=== PATIENT | male | born 1975 | race Caucasian/White ===

== ENCOUNTER 2020-03-27 01:34 | Inpatient (IN) | payer MEDICAID ==
[~2020-03-27] VITALS: Ht 165.1 cm; Wt 97.3 kg
[2020-03-27 02:47] LABS: BASOPHIL % 0.2 % (0-2); PLATELET COUNT 349 x10^3mcL (130-400); RED CELL DISTRIBUTION WIDTH 13.9 % (11.5-14.5)
[2020-03-27 02:48] LABS: BILIRUBIN TOTAL 0.65 mg/dL (0.20-1.00); CALCIUM 7.4 mg/dL (8.5-10.1); CARBON DIOXIDE 14.1 mmol/L (21-32); TOTAL PROTEIN, SERUM 7.9 g/dL (6.4-8.2)
[2020-03-27 02:52] LABS: ALBUMIN 3.3 g/dL (3.4-5.0)
[2020-03-27 02:54] LABS: CREATININE SERUM 4.8 mg/dL (0.7-1.3); POTASSIUM SERUM 6.9 mmol/L (3.5-5.1)
[2020-03-27 02:55] LABS: AMPHETAMINE QUAL UR POSITIVE (See below)
[2020-03-27 07:34] LABS: CHOLESTEROL/HDL RATIO 2.3
[2020-03-27 08:00] LABS: CALCIUM 7.5 mg/dL (8.5-10.1); CARBON DIOXIDE 17.2 mmol/L (21-32)
[2020-03-27 09:16] LABS: POTASSIUM SERUM 6.5 mmol/L (3.5-5.1)
[2020-03-27 09:17] LABS: CREATININE SERUM 4.9 mg/dL (0.7-1.3)
[2020-03-27 13:45] VITALS: BP 125/78
[2020-03-27 16:55] VITALS: BP 130/97
[2020-03-27 18:58] VITALS: BP 131/84
[2020-03-27 20:53] VITALS: BP 132/84
[2020-03-28 05:18] VITALS: BP 149/94
[2020-03-28 08:02] VITALS: BP 134/87
[2020-03-28 09:30] LABS: MAGNESIUM 2.6 mg/dL (1.8-2.4); PHOSPHOROUS 6.1 mg/dL (2.5-4.9)
[2020-03-28 09:36] LABS: BILIRUBIN TOTAL 0.99 mg/dL (0.20-1.00); CARBON DIOXIDE 26.8 mmol/L (21-32); POTASSIUM SERUM 5.2 mmol/L (3.5-5.1)
[2020-03-28 11:04] LABS: TOTAL PROTEIN, SERUM 5.9 g/dL (6.4-8.2)
[2020-03-28 11:05] LABS: CREATININE SERUM 7.5 mg/dL (0.7-1.3)
[2020-03-28 12:25] VITALS: BP 135/84
[2020-03-28 15:42] LABS: BASOPHIL % 0.1 % (0-2); PLATELET COUNT 238 x10^3mcL (130-400); RED CELL DISTRIBUTION WIDTH 14.1 % (11.5-14.5)
[2020-03-28 16:22] VITALS: BP 135/80
[2020-03-28 20:48] VITALS: BP 128/86
[2020-03-29 04:34] LABS: CALCIUM 6.8 mg/dL (8.5-10.1); CARBON DIOXIDE 26.1 mmol/L (21-32); MAGNESIUM 2.3 mg/dL (1.8-2.4); PHOSPHOROUS 7.1 mg/dL (2.5-4.9); POTASSIUM SERUM 4.5 mmol/L (3.5-5.1)
[2020-03-29 04:37] LABS: CREATININE SERUM 7.6 mg/dL (0.7-1.3)
[2020-03-29 04:41] LABS: PLATELET COUNT 188 x10^3mcL (130-400); RED CELL DISTRIBUTION WIDTH 14.2 % (11.5-14.5)
[2020-03-29 04:54] LABS: BASOPHIL % 0 % (0-2)
[2020-03-29 06:02] VITALS: BP 147/82
[2020-03-29 08:06] VITALS: BP 125/87
[2020-03-29 11:22] VITALS: BP 145/80
[2020-03-29 16:20] VITALS: BP 139/88
[2020-03-29 21:55] VITALS: BP 142/82
[2020-03-30 00:02] LABS: microscopic required? YES; urine erythrocyte 3+ (NEGATIVE)
[2020-03-30 05:03] LABS: PLATELET COUNT 143 x10^3mcL (130-400); RED CELL DISTRIBUTION WIDTH 13.7 % (11.5-14.5)
[2020-03-30 05:09] LABS: BASOPHIL % 0 % (0-2)
[2020-03-30 05:22] LABS: CARBON DIOXIDE 28.3 mmol/L (21-32); MAGNESIUM 2.6 mg/dL (1.8-2.4); POTASSIUM SERUM 5.2 mmol/L (3.5-5.1)
[2020-03-30 05:30] LABS: CALCIUM 5.9 mg/dL (8.5-10.1); CREATININE SERUM 9.6 mg/dL (0.7-1.3)
[2020-03-30 05:31] LABS: PHOSPHOROUS 10.9 mg/dL (2.5-4.9)
[2020-03-30 06:05] VITALS: BP 144/77
[2020-03-30 08:34] VITALS: BP 109/65
[2020-03-30 11:11] LABS: BILIRUBIN TOTAL 0.8 mg/dL (0.20-1.00); CARBON DIOXIDE 26.2 mmol/L (21-32); POTASSIUM SERUM 4.5 mmol/L (3.5-5.1)
[2020-03-30 11:12] LABS: ALBUMIN 1.8 g/dL (3.4-5.0); TOTAL PROTEIN, SERUM 5.2 g/dL (6.4-8.2)
[2020-03-30 11:15] LABS: CALCIUM 5.4 mg/dL (8.5-10.1); CREATININE SERUM 9.8 mg/dL (0.7-1.3)
[2020-03-30 13:55] VITALS: BP 114/71
[2020-03-30 17:08] VITALS: BP 110/70
[2020-03-30 19:25] LABS: CARBON DIOXIDE 25.6 mmol/L (21-32); POTASSIUM SERUM 4.9 mmol/L (3.5-5.1)
[2020-03-30 19:29] LABS: CALCIUM 5.2 mg/dL (8.5-10.1); CREATININE SERUM 10.7 mg/dL (0.7-1.3)
[2020-03-30 22:26] VITALS: BP 132/79
[2020-03-31 06:15] VITALS: BP 113/71
[2020-03-31 07:37] LABS: PLATELET COUNT 141 x10^3mcL (130-400); RED CELL DISTRIBUTION WIDTH 12.8 % (11.5-14.5)
[2020-03-31 08:21] LABS: CARBON DIOXIDE 24.9 mmol/L (21-32); MAGNESIUM 2.8 mg/dL (1.8-2.4); POTASSIUM SERUM 4.7 mmol/L (3.5-5.1)
[2020-03-31 08:37] VITALS: BP 126/71
[2020-03-31 08:40] LABS: CALCIUM 5.2 mg/dL (8.5-10.1)
[2020-03-31 08:41] LABS: CREATININE SERUM 11.1 mg/dL (0.7-1.3); PHOSPHOROUS 13.7 mg/dL (2.5-4.9)
[2020-03-31 13:08] VITALS: BP 121/79
[2020-03-31 13:54] LABS: BAND NEUTROPHIL 2 % (0-10); MONOCYTE 8 % (0-7); SEGMENTED NEUTROPHILS 73 % (37-75); rbc morphology (normal/abnorm) NORMAL (NORMAL)
[2020-03-31 15:09] LABS: PLATELET COUNT 136 x10^3mcL (152-348); RED CELL DISTRIBUTION WIDTH 13.6 % (12.1-16.2)
[2020-03-31 16:07] LABS: BAND NEUTROPHIL 5 % (0-10); METAMYELOCTE 4 % (0-2); MONOCYTE 1 % (0-7); SEGMENTED NEUTROPHILS 78 % (37-75)
[2020-03-31 16:08] LABS: PLATELET MORPHOLOGY PLATELETS NORMAL; rbc morphology (normal/abnorm) NORMAL (NORMAL)
[2020-03-31 17:38] VITALS: BP 141/75
[2020-03-31 21:11] VITALS: BP 157/70
[2020-04-01 05:51] VITALS: BP 137/70
[2020-04-01 07:25] LABS: CARBON DIOXIDE 23.5 mmol/L (21-32); MAGNESIUM 2.6 mg/dL (1.8-2.4); POTASSIUM SERUM 4.5 mmol/L (3.5-5.1)
[2020-04-01 07:40] LABS: CALCIUM 5.6 mg/dL (8.5-10.1)
[2020-04-01 09:16] VITALS: BP 154/78
[2020-04-01 09:35] LABS: PHOSPHOROUS 12.9 mg/dL (2.5-4.9)
[2020-04-01 12:00] VITALS: BP 128/78
[2020-04-01 14:07] LABS: BASOPHIL % 0.9 % (0.2-1.5); PLATELET COUNT 147 x10^3mcL (152-348)
[2020-04-01 17:46] VITALS: BP 161/81
[2020-04-01 19:56] VITALS: BP 167/87
[2020-04-02 05:50] VITALS: BP 162/80
[2020-04-02 06:59] LABS: PLATELET COUNT 174 x10^3mcL (152-348); RED CELL DISTRIBUTION WIDTH 13.8 % (12.1-16.2)
[2020-04-02 07:33] LABS: BILIRUBIN TOTAL 0.79 mg/dL (0.20-1.00); CALCIUM 6.5 mg/dL (8.5-10.1); CARBON DIOXIDE 22.2 mmol/L (21-32); POTASSIUM SERUM 4.4 mmol/L (3.5-5.1)
[2020-04-02 07:36] LABS: ALBUMIN 1.8 g/dL (3.4-5.0); CREATININE SERUM 8.9 mg/dL (0.7-1.3); TOTAL PROTEIN, SERUM 5.6 g/dL (6.4-8.2)
[2020-04-02 07:52] VITALS: BP 113/75
[2020-04-02 08:01] LABS: MONOCYTE 7.5 % (0-7)
[2020-04-02 11:29] VITALS: BP 150/81
[2020-04-02 15:00] LABS: rbc morphology (normal/abnorm) NORMAL (NORMAL)
[2020-04-02 16:12] VITALS: BP 145/78
[2020-04-02 20:48] VITALS: BP 124/70; BP 161/74
[2020-04-03 05:37] VITALS: BP 139/76
[2020-04-03 07:37] VITALS: BP 146/80
[2020-04-03 07:51] LABS: PLATELET COUNT 210 x10^3mcL (152-348); RED CELL DISTRIBUTION WIDTH 13.7 % (12.1-16.2)
[2020-04-03 12:20] VITALS: BP 166/71
[2020-04-03 14:02] LABS: BAND NEUTROPHIL 6 % (0-10); METAMYELOCTE 2 % (0-2); MONOCYTE 7 % (0-7)
[2020-04-03 14:03] LABS: MYELOCYTE 1 % (0-2)
[2020-04-03 14:04] LABS: SEGMENTED NEUTROPHILS 70 % (37-75); rbc morphology (normal/abnorm) NORMAL (NORMAL)
[2020-04-03 14:05] LABS: PLATELET MORPHOLOGY PLATELETS NORMAL
[2020-04-03 14:30] LABS: POTASSIUM SERUM 4.7 mmol/L (3.5-5.1)
[2020-04-03 14:31] LABS: CARBON DIOXIDE 20.4 mmol/L (21-32)
[2020-04-03 14:32] LABS: ALBUMIN 1.9 g/dL (3.4-5.0); CALCIUM 6.5 mg/dL (8.5-10.1); TOTAL PROTEIN, SERUM 5.6 g/dL (6.4-8.2)
[2020-04-03 14:33] LABS: BILIRUBIN TOTAL 0.68 mg/dL (0.20-1.00)
[2020-04-03 14:34] LABS: MAGNESIUM 2.9 mg/dL (1.8-2.4)
[2020-04-03 14:37] LABS: CREATININE SERUM 10.3 mg/dL (0.7-1.3)
[2020-04-03 14:38] LABS: PHOSPHOROUS 11.8 mg/dL (2.5-4.9)
[2020-04-03 16:45] VITALS: BP 158/79
[2020-04-03 21:21] VITALS: BP 141/71
[2020-04-04 02:59] VITALS: BP 127/69
[2020-04-04 06:10] VITALS: BP 154/75
[2020-04-04 08:05] VITALS: BP 130/69
[2020-04-04 09:10] LABS: CALCIUM 6.7 mg/dL (8.5-10.1); CARBON DIOXIDE 23.6 mmol/L (21-32); MAGNESIUM 2.3 mg/dL (1.8-2.4); PHOSPHOROUS 8.5 mg/dL (2.5-4.9); POTASSIUM SERUM 4.2 mmol/L (3.5-5.1)
[2020-04-04 09:19] LABS: PLATELET COUNT 213 x10^3mcL (152-348); RED CELL DISTRIBUTION WIDTH 13.6 % (12.1-16.2)
[2020-04-04 12:11] VITALS: BP 125/74
[2020-04-04 14:36] LABS: SEGMENTED NEUTROPHILS 82.6 % (37-75)
[2020-04-04 14:37] LABS: BASOPHIL 1.1 % (0-2); MONOCYTE 5.4 % (0-7); rbc morphology (normal/abnorm) NORMAL (NORMAL)
[2020-04-04 16:50] VITALS: BP 125/73
[2020-04-04 17:00] VITALS: Ht 165.1 cm; Wt 97.3 kg
[2020-04-04 22:09] VITALS: BP 165/84
[2020-04-05 06:41] VITALS: BP 117/72
[2020-04-05 08:00] VITALS: BP 126/75
[2020-04-05 08:09] LABS: BASOPHIL % 0.4 % (0.2-1.5); PLATELET COUNT 259 x10^3mcL (152-348); RED CELL DISTRIBUTION WIDTH 13.6 % (12.1-16.2)
[2020-04-05 08:56] LABS: microscopic required? YES; urine erythrocyte 2+ (NEGATIVE)
[2020-04-05 09:25] LABS: CARBON DIOXIDE 23.7 mmol/L (21-32); MAGNESIUM 2.6 mg/dL (1.8-2.4); POTASSIUM SERUM 4.2 mmol/L (3.5-5.1)
[2020-04-05 09:29] LABS: CREATININE SERUM 9.4 mg/dL (0.7-1.3)
[2020-04-05 12:22] VITALS: BP 133/70
[2020-04-05 15:19] LABS: PHOSPHOROUS 10.1 mg/dL (2.5-4.9)
[2020-04-05 17:01] VITALS: BP 117/74
[2020-04-05 20:36] VITALS: BP 131/71
[2020-04-06 05:39] VITALS: BP 138/72
[2020-04-06 07:23] LABS: BASOPHIL % 0.2 % (0.2-1.5); RED CELL DISTRIBUTION WIDTH 14.1 % (12.1-16.2)
[2020-04-06 07:26] LABS: PLATELET COUNT 307 x10^3mcL (152-348)
[2020-04-06 07:29] LABS: CALCIUM 7.3 mg/dL (8.5-10.1); CARBON DIOXIDE 25.6 mmol/L (21-32)
[2020-04-06 07:36] LABS: CREATININE SERUM 7.6 mg/dL (0.7-1.3)
[2020-04-06 08:07] VITALS: BP 141/81
[2020-04-06 13:04] VITALS: BP 150/76
[2020-04-06 16:52] VITALS: BP 144/76
[2020-04-06 20:48] VITALS: BP 138/77
[2020-04-07 05:19] VITALS: BP 133/74
[2020-04-07 08:51] VITALS: BP 134/79
[2020-04-07 09:12] LABS: PLATELET COUNT 347 x10^3mcL (152-348); RED CELL DISTRIBUTION WIDTH 14.2 % (12.1-16.2)
[2020-04-07 09:53] LABS: CALCIUM 7.8 mg/dL (8.5-10.1); CARBON DIOXIDE 23.4 mmol/L (21-32); POTASSIUM SERUM 4.5 mmol/L (3.5-5.1)
[2020-04-07 09:58] LABS: CREATININE SERUM 8.8 mg/dL (0.7-1.3)
[2020-04-07 11:38] LABS: BAND NEUTROPHIL 0 % (0-10); MONOCYTE 8 % (0-7); PLATELET MORPHOLOGY PLATELETS NORMAL; SEGMENTED NEUTROPHILS 81 % (37-75)
[2020-04-07 11:39] LABS: rbc morphology (normal/abnorm) NORMAL (NORMAL)
[2020-04-07 11:54] VITALS: BP 152/86
[2020-04-07 17:08] VITALS: BP 142/84
[2020-04-07 21:40] VITALS: BP 135/70
[2020-04-08 06:13] VITALS: BP 139/80
[2020-04-08 08:02] LABS: BASOPHIL % 0.5 % (0.2-1.5); PLATELET COUNT 374 x10^3mcL (152-348); RED CELL DISTRIBUTION WIDTH 13.8 % (12.1-16.2)
[2020-04-08 08:23] LABS: CALCIUM 8.3 mg/dL (8.5-10.1); CARBON DIOXIDE 26.5 mmol/L (21-32); POTASSIUM SERUM 3.9 mmol/L (3.5-5.1)
[2020-04-08 08:25] LABS: CREATININE SERUM 6.9 mg/dL (0.7-1.3)
[2020-04-08 09:04] VITALS: BP 144/81
[2020-04-08 12:05] VITALS: BP 157/87
[2020-04-08 16:35] VITALS: BP 149/86
[2020-04-08 20:30] VITALS: BP 139/75
[2020-04-09 04:47] VITALS: BP 158/81
[2020-04-09 09:15] VITALS: BP 146/89
[2020-04-09 09:34] LABS: BASOPHIL % 0.5 % (0.2-1.5)
[2020-04-09 10:18] LABS: PLATELET COUNT 448 x10^3mcL (152-348)
[2020-04-09 12:09] VITALS: BP 145/85
[2020-04-09 14:07] LABS: CALCIUM 8.9 mg/dL (8.5-10.1); CARBON DIOXIDE 20.7 mmol/L (21-32); POTASSIUM SERUM 4.4 mmol/L (3.5-5.1)
[2020-04-09 14:09] LABS: CREATININE SERUM 7.3 mg/dL (0.7-1.3)
[2020-04-09 17:00] VITALS: BP 154/89
[2020-04-09 20:58] VITALS: BP 132/71
[2020-04-10 05:15] VITALS: BP 132/75; BP 151/96
[2020-04-10 07:10] LABS: CALCIUM 8.1 mg/dL (8.5-10.1); CARBON DIOXIDE 25.5 mmol/L (21-32); POTASSIUM SERUM 3.9 mmol/L (3.5-5.1)
[2020-04-10 07:21] LABS: BASOPHIL % 0.9 % (0.2-1.5); RED CELL DISTRIBUTION WIDTH 13.9 % (12.1-16.2)
[2020-04-10 08:08] LABS: PLATELET COUNT 422 x10^3mcL (152-348)
[2020-04-10 09:10] VITALS: BP 138/82
[2020-04-10 13:50] VITALS: BP 148/82
[2020-04-10 17:36] VITALS: BP 144/87
[2020-04-10 17:40] VITALS: BP 133/84
[2020-04-10 21:00] VITALS: BP 124/67
[2020-04-11 05:04] VITALS: BP 136/86
[2020-04-11 05:06] VITALS: BP 136/81
[2020-04-11 08:19] LABS: BASOPHIL % 1.1 % (0.2-1.5); RED CELL DISTRIBUTION WIDTH 13.9 % (12.1-16.2)
[2020-04-11 09:07] VITALS: BP 157/87
[2020-04-11 09:45] LABS: CALCIUM 8.7 mg/dL (8.5-10.1); MAGNESIUM 2.3 mg/dL (1.8-2.4); PHOSPHOROUS 6.7 mg/dL (2.5-4.9); POTASSIUM SERUM 4.1 mmol/L (3.5-5.1)
[2020-04-11 09:49] LABS: C REACTIVE PROTEIN 15.4 mg/dL (<=0.9); CREATININE SERUM 5.2 mg/dL (0.7-1.3)
[2020-04-11 12:16] VITALS: BP 148/71
[2020-04-11 12:50] LABS: PLATELET COUNT 454 x10^3mcL (152-348)
[2020-04-11 16:07] VITALS: BP 137/78
[2020-04-11 21:32] VITALS: BP 139/73
[2020-04-12 06:17] VITALS: BP 135/72
[2020-04-12 07:29] LABS: BASOPHIL % 1.1 % (0.2-1.5); RED CELL DISTRIBUTION WIDTH 13.9 % (12.1-16.2)
[2020-04-12 08:12] LABS: CALCIUM 9.4 mg/dL (8.5-10.1); CARBON DIOXIDE 27.8 mmol/L (21-32); MAGNESIUM 2.2 mg/dL (1.8-2.4); PHOSPHOROUS 5.7 mg/dL (2.5-4.9)
[2020-04-12 08:21] LABS: CREATININE SERUM 3.9 mg/dL (0.7-1.3)
[2020-04-12 08:43] LABS: PLATELET COUNT 404 x10^3mcL (152-348)
[2020-04-12 08:44] VITALS: BP 162/92
[2020-04-12 12:03] VITALS: BP 149/79
[2020-04-12 16:37] VITALS: BP 155/90
[2020-04-12 22:26] VITALS: BP 146/88
[2020-04-13 06:20] VITALS: BP 141/84
[2020-04-13 07:38] LABS: BASOPHIL % 1.1 % (0.2-1.5)
[2020-04-13 07:58] LABS: PLATELET COUNT 442 x10^3mcL (152-348)
[2020-04-13 08:57] VITALS: BP 143/91
[2020-04-13 09:20] LABS: CALCIUM 9.8 mg/dL (8.5-10.1); CARBON DIOXIDE 25.9 mmol/L (21-32); MAGNESIUM 2.2 mg/dL (1.8-2.4); PHOSPHOROUS 7.1 mg/dL (2.5-4.9); POTASSIUM SERUM 4.1 mmol/L (3.5-5.1)
[2020-04-13 13:05] VITALS: BP 165/84
[2020-04-13 18:43] VITALS: BP 163/92
[2020-04-13 20:43] VITALS: BP 128/84
[2020-04-14 05:23] VITALS: BP 140/89
[2020-04-14 08:43] VITALS: BP 146/83
[2020-04-14 08:54] LABS: BASOPHIL % 1.1 % (0.2-1.5); RED CELL DISTRIBUTION WIDTH 13.8 % (12.1-16.2)
[2020-04-14 09:02] LABS: CALCIUM 9.4 mg/dL (8.5-10.1); CARBON DIOXIDE 26.2 mmol/L (21-32); CREATININE SERUM 3.5 mg/dL (0.7-1.3); PHOSPHOROUS 6.3 mg/dL (2.5-4.9); POTASSIUM SERUM 3.8 mmol/L (3.5-5.1)
[2020-04-14 09:10] LABS: PLATELET COUNT 409 x10^3mcL (152-348)
[2020-04-14 12:16] VITALS: BP 133/90
[2020-04-14 16:18] VITALS: BP 136/78
[2020-04-14 21:06] VITALS: BP 152/82
[2020-04-15 05:40] VITALS: BP 138/86
[2020-04-15 07:59] LABS: BASOPHIL % 1.8 % (0.2-1.5)
[2020-04-15 08:06] LABS: PLATELET COUNT 418 x10^3mcL (152-348)
[2020-04-15 08:09] LABS: CALCIUM 9.6 mg/dL (8.5-10.1); CARBON DIOXIDE 25.4 mmol/L (21-32); CREATININE SERUM 3.2 mg/dL (0.7-1.3); POTASSIUM SERUM 4.1 mmol/L (3.5-5.1)
[2020-04-15 09:32] VITALS: BP 153/93
[2020-04-15 12:51] VITALS: BP 131/82
[2020-04-15 17:22] VITALS: BP 144/88
[2020-04-15 20:49] VITALS: BP 135/90
[2020-04-16 05:50] VITALS: BP 142/85
[2020-04-16 07:35] LABS: CALCIUM 9.6 mg/dL (8.5-10.1); CREATININE SERUM 2.9 mg/dL (0.7-1.3); POTASSIUM SERUM 4.7 mmol/L (3.5-5.1)
[2020-04-16 07:41] LABS: BASOPHIL % 1.8 % (0.2-1.5); RED CELL DISTRIBUTION WIDTH 13.8 % (12.1-16.2)
[2020-04-16 07:53] LABS: PLATELET COUNT 485 x10^3mcL (152-348)
[2020-04-16 09:24] VITALS: BP 137/86
[2020-04-16 13:04] VITALS: BP 141/85
[2020-04-16 16:07] VITALS: BP 147/87
[2020-04-16 22:00] VITALS: BP 142/83
[2020-04-17 06:11] VITALS: BP 123/80
[2020-04-17 08:18] LABS: RED CELL DISTRIBUTION WIDTH 14.1 % (12.1-16.2)
[2020-04-17 08:54] LABS: BASOPHIL % 2.3 % (0.2-1.5); PLATELET COUNT 470 x10^3mcL (152-348)
[2020-04-17 09:11] VITALS: BP 138/82
[2020-04-17 09:32] LABS: BILIRUBIN TOTAL 0.28 mg/dL (0.20-1.00); CALCIUM 9.3 mg/dL (8.5-10.1); CARBON DIOXIDE 21.3 mmol/L (21-32); CREATININE SERUM 2.5 mg/dL (0.7-1.3); POTASSIUM SERUM 3.9 mmol/L (3.5-5.1); TOTAL PROTEIN, SERUM 7.7 g/dL (6.4-8.2)
[2020-04-17 09:36] LABS: ALBUMIN 2.9 g/dL (3.4-5.0)
[2020-04-17 12:31] VITALS: BP 125/80
[2020-04-17 16:22] VITALS: BP 138/90
[2020-04-17 20:21] VITALS: BP 143/85
[2020-04-18 05:30] VITALS: BP 136/86
[2020-04-18 08:37] VITALS: BP 136/80
[2020-04-18 09:40] LABS: CALCIUM 9.4 mg/dL (8.5-10.1); CREATININE SERUM 2.2 mg/dL (0.7-1.3); MAGNESIUM 2.2 mg/dL (1.8-2.4); PHOSPHOROUS 5.4 mg/dL (2.5-4.9); POTASSIUM SERUM 4.8 mmol/L (3.5-5.1)
[2020-04-18 11:02] LABS: BASOPHIL % 1.7 % (0.2-1.5); RED CELL DISTRIBUTION WIDTH 14.4 % (12.1-16.2)
[2020-04-18] MEDS ORDERED: COR3 PO (11:54)
[2020-04-18 12:06] VITALS: BP 142/78
[2020-04-18 13:08] VITALS: BP 142/78
[2020-04-18 21:05] LABS: PLATELET COUNT 527 x10^3mcL (152-348)
[2020-04-19 05:07] LABS: CK-BB 0 % (0); CK-MB 0 % (0-3); CK-MM 93 % (97-100); MACRO TYPE 1 7 % (Not Observed); MACRO TYPE 2 0 % (Not Observed)
[2020-04-19] MEDS ORDERED: IBU600 M2 PO (20:38)
== END 2020-04-18 14:53 | disposition home or self-care (01) | DRG 871 ==
LOC: ED 01:34 → IC 06:36 → MU 06:36 → DU 06:36 → MU 04-12 02:27
PROVIDERS: Emergency Medicine; Family Medicine; Internal Medicine; ADMIT Internal Medicine; ATTEND Internal Medicine
PROC: 5A1D70Z Performance of Urinary Filtration, Intermittent, Less than 6 Hours Per Day (ICD-10-PCS; principal; 2020-03-27)
PROC: 02HV33Z Insertion of Infusion Device into Superior Vena Cava, Percutaneous Approach (ICD-10-PCS; 2020-03-27)
PROC: B548ZZA Ultrasonography of Superior Vena Cava, Guidance (ICD-10-PCS; 2020-03-27)
PROC: 5A1D70Z Performance of Urinary Filtration, Intermittent, Less than 6 Hours Per Day (ICD-10-PCS; 2020-03-28)
PROC: B548ZZA Ultrasonography of Superior Vena Cava, Guidance (ICD-10-PCS; 2020-03-28)
PROC: 5A1D70Z Performance of Urinary Filtration, Intermittent, Less than 6 Hours Per Day (ICD-10-PCS; 2020-03-30)
PROC: 02HV33Z Insertion of Infusion Device into Superior Vena Cava, Percutaneous Approach (ICD-10-PCS; 2020-03-30)
PROC: B548ZZA Ultrasonography of Superior Vena Cava, Guidance (ICD-10-PCS; 2020-03-30)
PROC: 5A1D70Z Performance of Urinary Filtration, Intermittent, Less than 6 Hours Per Day (ICD-10-PCS; 2020-03-31)
PROC: 02HV33Z Insertion of Infusion Device into Superior Vena Cava, Percutaneous Approach (ICD-10-PCS; 2020-03-31)
PROC: 5A1D70Z Performance of Urinary Filtration, Intermittent, Less than 6 Hours Per Day (ICD-10-PCS; 2020-04-01)
PROC: 06HY33Z Insertion of Infusion Device into Lower Vein, Percutaneous Approach (ICD-10-PCS; 2020-04-02)
PROC: 5A1D70Z Performance of Urinary Filtration, Intermittent, Less than 6 Hours Per Day (ICD-10-PCS; 2020-04-03)
PROC: 5A1D70Z Performance of Urinary Filtration, Intermittent, Less than 6 Hours Per Day (ICD-10-PCS; 2020-04-05)
PROC: 5A1D70Z Performance of Urinary Filtration, Intermittent, Less than 6 Hours Per Day (ICD-10-PCS; 2020-04-07)
PROC: 5A1D70Z Performance of Urinary Filtration, Intermittent, Less than 6 Hours Per Day (ICD-10-PCS; 2020-04-09)
PROC: 5A1D70Z Performance of Urinary Filtration, Intermittent, Less than 6 Hours Per Day (ICD-10-PCS; 2020-04-11)
DX: A41.9 Sepsis, unspecified organism (principal); J96.01 Acute respiratory failure with hypoxia; J69.0 Pneumonitis due to inhalation of food and vomit; G92 Toxic encephalopathy; I21.A1 Myocardial infarction type 2; N17.0 Acute kidney failure with tubular necrosis; M62.82 Rhabdomyolysis; T40.2X1A Poisoning by other opioids, accidental (unintentional), initial encounter; Z20.828 Contact with and (suspected) exposure to other viral communicable diseases; I10 Essential (primary) hypertension; Y92.89 Other specified places as the place of occurrence of the external cause; K72.90 Hepatic failure, unspecified without coma; E87.5 Hyperkalemia
CPT/HCPCS: 36600; 82962; 83880; 86580; 97110-GP; 97112-GP; 97116-GP; 97530-GP; G0378; G0480; J0885-EC; J1170; J1200; J1642; J1644; J1815; J1940; J2060; J2543; J3370; J3490; J7030; J7040; J7042; J7050; J7060; J7120; U0003